=== PATIENT | female | born 1980 | race Caucasian/White ===

== ENCOUNTER → 2016-10-01 | Outpatient (CLI) | payer BC | END | disposition home or self-care (01) | LOC: C.PAPS 09:57 | PROVIDERS: ATTEND Obstetrics & Gynecology | DX: Z01.411 Encounter for gynecological examination (general) (routine) with abnormal findings (principal); R87.615 Unsatisfactory cytologic smear of cervix ==

== ENCOUNTER → 2016-10-12 | Outpatient (CLI) | payer BC | END | disposition home or self-care (01) | LOC: C.PAPS 09:58 | PROVIDERS: ATTEND Obstetrics & Gynecology | DX: Z01.419 Encounter for gynecological examination (general) (routine) without abnormal findings (principal) ==

== ENCOUNTER → 2016-12-08 | Outpatient (CLI) | payer BC | END | disposition home or self-care (01) | LOC: C.RDSM 14:05 | PROVIDERS: ATTEND Family Medicine Sports Medicine | DX: M25.511 Pain in right shoulder (principal) ==

== ENCOUNTER → 2017-04-27 | Outpatient (CLI) | payer BC ==
--- NOTE | 2017-04-27 13:48 | MAMMOGRAPHY REPORT ---
ULTRASOUND OF BOTH BREASTS: 04/27/2017 CLINICAL HISTORY: Diffuse severe bilateral breast pain. Patient presents because her provider felt a small 5 mm mass in the 2:00 left breast on physical exam. Patient was unable to feel the mass and i s also unable to point it out to me today. She could not tolerate mammography due to extreme breast pain. COMPARISON: Comparison is made to exam dated: 04/25/2015 ultrasound - [facility]. FINDINGS: The patient declined mammography as she could not tolerate it today due to severe breast p ain. Therefore, targeted ultrasound was performed in the upper outer quadrant of the left breast wit h particular attention to the 2:00 axis. Given that the patient was unsure of the exact location of the mass, scanning was performed in the 12:00, 1:00, 2:00 and 3:00 axes. Sonographically normal dens e glandular tissue is seen without a discrete solid or cystic mass. IMPRESSION: ACR BI-RADS CATEGORY 0: INCOMPLETE EVALUATION: NEED ADDITIONAL IMAGING EVALUATION 1. There is no sonographic evidence of malignancy or other discrete abnormality in the 2:00 left keshia ast, to exclude explain the palpable mass identified by the patient's provider. 2. The patient declined mammography as she could not tolerate it today due to extreme pain. Therefo re the workup is technically incomplete without a mammogram plus ultrasound, to exclude the possibili ty of microcalcifications which could be sonographically occult. This was discussed with the patient and we decided that she will try to return to our department once the pain has decreased and also af ter pre-medicating with ibuprofen before her mammogram appointment. Once the mammograms are obtained , they will be reviewed and addendum will be made to this report. 3. Continued clinical follow-up is also recommended, as biopsy of a clinically suspicious mass shoul d not be precluded by negative imaging. These results and recommendations were discussed with the patient at the time of the exam. Mahsa Pulido M.D. ay/:04/27/2017 12:09:17 Quarrying Specialist: Dr. Mahsa Pulido, [facility] letter sent: Addl Imaging 0 BI-RADS Code: ACR BI-RADS Category 0: Incomplete Evaluation: Need Additional Imaging Evaluation
== END ==
LOC: C.MAMM 11:15
PROVIDERS: ATTEND Physician Assistant
DX: N63 Unspecified lump in breast (principal); N64.4 Mastodynia

== ENCOUNTER → 2017-05-16 | Outpatient (CLI) | payer BC ==
--- NOTE | 2017-05-16 13:33 | MAMMOGRAPHY REPORT ---
BILATERAL DIGITAL DIAGNOSTIC MAMMOGRAM TOMOSYNTHESIS WITH CAD AND TARGETED RIGHT ULTRASOUND: 7 CLINICAL HISTORY: 37-year-old woman presents for bilateral mammography. She was recently evaluated i n the left breast with diagnostic ultrasound, as her provider felt a new 5 mm mass in the 2:00 axis. The patient was unable to feel the lump herself. She could not tolerate mammography at that time du e to severe bilateral breast pain. TECHNIQUE: Bilateral breast tomosynthesis in addition to standard 2D mammography was performed. Curre nt study was also evaluated with a Computer Aided Detection (CAD) system. COMPARISON: Comparison is made to exams dated: 04/27/2017 ultrasound, 04/25/2015 mammogram, and 04/25/2015 ultrasound - [facility]. BREAST COMPOSITION: The tissue of both breasts is extremely dense, which lowers the sensitivity of m ammography. FINDINGS: A square shaped pain marker overlies the upper inner quadrant of the left breast. No suspi cious mass, architectural distortion, asymmetry or cluster of suspicious microcalcifications is seen in the left breast. There is a nodular asymmetry in the retroareolar anterior right breast on the CC view measuring 4.5 m m, that does not definitely persist as a mass on the corresponding tomosynthesis images, and is less prominent comparing to the prior mammogram at which time it measured 6.9 mm. A 7 mm nodular asymmetr ies seen in the anterior subareolar right breast on the MLO view, for which further evaluation with u ltrasound was performed. There are a few scattered and loosely grouped punctate benign-appearing goyo rocalcifications in the right breast. Targeted ultrasound was performed in the 11:00, 1:00, 12:00 and retroareolar regions of the right keshia ast. Scattered anechoic benign simple cysts are identified, without evidence of a suspicious solid o r cystic mass. IMPRESSION: ACR BI-RADS CATEGORY 2: BENIGN, TARGETED ULTRASOUND ACR BI-RADS CATEGORY 2: BENIGN There is nodularity in the anterior subareolar right breast mammographically, thought to correlate wi th simple cysts identified on ultrasound. These findings are compatible with benign fibrocystic razo ges. There is no mammographic evidence of malignancy bilaterally. Continued clinical follow-up is r ecommended in the left breast, as biopsy of a clinically suspicious mass should not be precluded by n egative imaging. These results and recommendations were discussed with the patient at the time of the exam. A 2 year screening mammogram is recommended. Approximately 10% of breast cancers are not detected with mammography. A negative mammographic report should not delay biopsy if a clinically suggestive mass is present. Mahsa Pulido M.D. ay/:05/16/2017 10:03:32 Fall Intern: Callie Ward, [facility] letter sent: Normal 1/2 BI-RADS Code: ACR BI-RADS Category 2: Benign Ultrasound BI-RADS: ACR BI-RADS Category 2: Benign
== END | disposition home or self-care (01) ==
LOC: C.MAMM 08:23
PROVIDERS: ATTEND Physician Assistant
DX: N64.4 Mastodynia (principal); N63 Unspecified lump in breast; R92.2 Inconclusive mammogram

== ENCOUNTER → 2017-05-31 | Outpatient (CLI) | payer BC ==
[2017-05-31 13:27] LABS: C-REACTIVE PROTEIN < 0.29 mg/dl (0-0.29); RHEUMATOID FACTOR < 10.0 U/mL (0-15)
[2017-06-01 23:30] LABS: PARVOVIRUS IgG INDEX 7.4 (<0.9); PARVOVIRUS IgM INDEX 0.1 (<0.9)
== END | disposition home or self-care (01) ==
LOC: C.LAB1850 09:39
PROVIDERS: ATTEND Internal Medicine Rheumatology
DX: M06.4 Inflammatory polyarthropathy (principal); M79.641 Pain in right hand; M79.642 Pain in left hand

== ENCOUNTER → 2017-05-31 | Outpatient (CLI) | payer BC ==
--- NOTE | 2017-05-31 10:11 | DIAGNOSTIC IMAGING REPORT ---
R HAND MIN 3 VIEWS ROUTINE CLINICAL HISTORY: 37 years-old Female presenting with BILATERAL HAND PAIN, IMFLAMMATROY POLYARTHRITIS. TECHNIQUE: Frontal, oblique, and lateral views of the right hand were obtained. COMPARISON: None. FINDINGS: No acute fracture or malalignment. No significant degenerative change. No evidence of erosions or joint space loss. Soft tissues within normal limits. No evidence of osteopenia. IMPRESSION: Normal radiographs of the right hand. Electronically signed by: Feliz Fox M.D. 05/31/2017 10:10 AM Dictated Date/Time: 05/31/2017 10:09 AM
--- NOTE | 2017-05-31 10:13 | DIAGNOSTIC IMAGING REPORT ---
L HAND MIN 3 VIEWS ROUTINE CLINICAL HISTORY: 37 years-old Female presenting with BILATERAL HAND PAIN, IMFLAMMATROY POLYARTHRITIS. TECHNIQUE: Frontal, oblique, and lateral views of the left hand were obtained. COMPARISON: Correlation made to plain radiographs of the right hand performed at the same time. FINDINGS: No acute fracture or malalignment. No degenerative change. No erosions or joint space loss. No radiographic soft tissue abnormality. No gross evidence of osteopenia. IMPRESSION: Normal radiographs of the left hand. Electronically signed by: Feliz Fox M.D. 05/31/2017 10:12 AM Dictated Date/Time: 05/31/2017 10:11 AM
== END | disposition home or self-care (01) ==
LOC: C.RAD1850 09:56
PROVIDERS: ATTEND Internal Medicine Rheumatology
DX: M79.641 Pain in right hand (principal); M79.642 Pain in left hand; M06.4 Inflammatory polyarthropathy

== ENCOUNTER → 2017-09-07 | Outpatient (CLI) | payer OTHER ==
[~2017-09-07] MED LIST: GADAVIST IV PRN
--- NOTE | 2017-09-07 09:59 | DIAGNOSTIC IMAGING REPORT ---
FLUOROSCOPICALLY GUIDED RIGHT SHOULDER ARTHROGRAM PRE-MRI CLINICAL HISTORY: Right shoulder pain. COMPARISON STUDY: Conventional radiographic study dated 12/08/2016 FINDINGS: A timeout was performed. The risks of the procedure were explained the patient and informed consent was obtained. Patient prepped and draped in sterile fashion. The skin was anesthetized 1% lidocaine. The fluoroscopic guidance, 22-gauge needle was introduced the joint capsule. Mixture of Optiray 300 and gadolinium was instilled into the joint space. A fluoroscopic spot image confirmed intra-articular location of the contrast. There were no immediate locations. The patient was sent to the MRI suite for further imaging. 52 seconds of fluoroscopic time was utilized. A single fluoroscopic spot image was acquired. IMPRESSION: Successful fluoroscopically guided right shoulder gadolinium arthrogram pre-MRI Electronically signed by: Sean Jones M.D. 09/07/2017 9:57 AM Dictated Date/Time: 09/07/2017 9:56 AM
--- NOTE | 2017-09-07 13:15 | DIAGNOSTIC IMAGING REPORT ---
R UPPER EXTREMITY JOINT W/ CLINICAL HISTORY: 37 years-old Female with M25.511. Subacute intermittent right shoulder pain COMPARISON: None. TECHNIQUE: Multiplanar, multi sequence MRI of the right shoulder was performed following the intra-articular administration of contrast containing Gadavist. FINDINGS: ROTATOR CUFF: The tendons of the rotator cuff including the supraspinatus, infraspinatus, teres minor and subscapularis are intact. The rotator cuff musculature is normal in morphology and signal. Mild tendinosis of the supraspinatus and infraspinatus tendons without high-grade partial or full-thickness tear identified. BICEPS TENDON: The long-head biceps tendon is intact. No evidence of tendinosis. The biceps shelley and anchor are intact. LABRUM: The glenoid labrum is intact to the extent that it is visualized. There is no evidence for a paralabral cyst. Minimal fluid is noted beneath portion of the anterosuperior labrum as noted on image 9 series 4 which does not appear to extend past the long head biceps anchor suggesting sublabral recess. GLENOHUMERAL JOINT: The articular cartilage overlying the glenoid fossa is normal. There is no large glenohumeral joint effusion. There is no loose body or debris present within the glenohumeral joint. ACROMIOCLAVICULAR JOINT: Minimal degenerative changes of the AC joint. No evidence of os acromiale. No subacromial/subdeltoid bursitis. OUTLET SPACES: The suprascapular notch and quadrilateral space are without obstructing or space occupying lesions. BONE MARROW: No focal abnormality, fracture or marrow occupying lesion. SOFT TISSUES: The periarticular soft tissues are unremarkable. IMPRESSION: 1. Probable small sublabral recess without definite labral tear identified. 2. Mild tendinosis of the supraspinatus and infraspinatus tendons without evidence of high-grade partial or full-thickness tear. 3. Minimal degenerative changes of the AC joint. The above report was generated using voice recognition software. It may contain grammatical, syntax or spelling errors. Electronically signed by: Travis Santana M.D. 09/07/2017 1:13 PM Dictated Date/Time: 09/07/2017 11:22 AM
== END | disposition home or self-care (01) ==
LOC: C.MRIBC 09-02 10:51
PROVIDERS: ATTEND Family Medicine Sports Medicine
DX: M25.511 Pain in right shoulder (principal)

== ENCOUNTER → 2017-12-23 | Outpatient (CLI) | payer OTHER | END | disposition home or self-care (01) | LOC: C.PAPS 12:03 | PROVIDERS: ATTEND Obstetrics & Gynecology | DX: Z01.419 Encounter for gynecological examination (general) (routine) without abnormal findings (principal) ==